=== PATIENT | female | born 1960 | race Caucasian/White ===

== ENCOUNTER → 2016-11-02 | Outpatient (CLI) | payer OTHER ==
--- NOTE | 2016-11-02 13:10 | RAD ---
Gisell Ballisaiah 11/02/2016 Time 0704 hours. Indication: Right upper quadrant pain. The pancreas, aorta and IVC are unremarkable. Liver is unremarkable. No discrete mass is detected. The gallbladder is without stones or sludge. No wall thickening or pericholecystic fluid is identified. The spleen is normal in size. The kidneys are unremarkable. There is no ascites. Impression: Unremarkable abdominal ultrasound. MTDD
== END | disposition home or self-care (01) ==
LOC: US 06:39
PROVIDERS: ATTEND Family Medicine
DX: R10.11 Right upper quadrant pain (principal)
CPT/HCPCS: 76700

== ENCOUNTER → 2017-06-06 | Day surgery (SDC) | payer OTHER ==
[~2017-06-06] MED LIST: 0.9 % SODIUM CHLORIDE 50 ML VIAL. IJ ONE; AMOX1TAB61 PO; ASPI-482 PO; DEXAMETHASONE SOD PHOS 20 MG/5 ML VIAL. ONE; DOCU-109 PO; FERR-26 PO; GELATIN SPONGE SIZE 100. ONE; GLYCOPYRROLATE 1 MG/5 ML VIAL. ONE; HYDROmorphone 2 MG/ML VIAL IV PRN; IV RINGERS,LACTATED 1000ML 1,000 ML IV SCH; KETAMINE HCL 500 MG/10 ML VIAL. ONE; KETOROLAC 30 MG/ML INJ FOR OR. INJ ONE; KETOROLAC 60 MG/2 ML INJ FOR OR. ONE; LIDOCAINE 1% PF 2 ML VIAL. ID PRN; LIDOCAINE 2% PF Vial for OR 5 ML VIAL. ONE; LIDOCAINE 2%/EPI 1:100,000 20 ML VIAL. ONE; MIDAZOLAM HCL/PF 2 MG/2 ML VIAL. ONE; MORPHINE SULFATE 2 MG/ML DISP.SYRIN. IV PRN; MULT1TAB52 PO; MUPI22OI2 TP; NEOMY/BACITR/POLYMYXIN OINT PACKET. TP ONE; ONDANSETRON PF 4 MG/2 ML VIAL. IV PRN; ONDANSETRON PF 4 MG/2 ML VIAL. ONE; OXYC-323 PO; OXYM15MI4 NS; OXYMETAZOLINE 0.05% NASAL SPRAY 30ML BOTTLE. NS ONE; PRAV40TA2 PO; PROCHLORPERAZINE 10 MG/2 ML VIAL. IV PRN; PROPOFOL 20 ML IV ONE; RANI150T2 PO; REMIFENTANIL 2 MG VIAL. IV ONE; SODI104S NS; SUCCINYLCHOLINE 200 MG/10 ML VIAL. ONE; fentaNYL PF VIAL 100 MCG/2 ML VIAL IV PRN; fentaNYL PF VIAL 100 MCG/2 ML VIAL ONE; oxyCODONE/APAP 5/325 1 TAB TABLET PO ONE
[2017-06-06] MEDS: fentaNYL PF VIAL 100 MCG/2 ML VIAL IV PRN ×3 (11:55→13:08)
--- NOTE | 2017-06-06 12:08 | DISCH ---
DISCHARGE INSTRUCTIONS Condition on Discharge Condition on Discharge: Stable Activity After Discharge Activity Instructions for Disc: Avoid exertion Lifting Instructions after Dis: Do not lift >10 pounds Driving Instructions after Dis: Do not drive today Diet after Discharge Diet after Discharge: Regular Wound Incision Care Wound/Incision Care: Ice to area for comfort Contacting the [facility] after DC Call your doctor for: Concerns you may have JENNY LOPEZ MD Jun 06, 2017 12:07
--- NOTE | 2017-06-06 12:20 | PDOC4 ---
OPERATIVE NOTE Date: Date: Jun 06, 2017 Pre-Op Diagnosis: acquired nasal deformity, deviated septum, bilateral inferior turbinate hypertrophy Post-Op Diagnosis: Same as above Procedure Performed: open septorhinoplasty to include open septoplasty with reconstruction of nasal septum using cadaveric rib, medial and lateral osteotomies, left bias cutter graft ; bilateral inferior turbinoplasty Surgeon: Dr. Shona Abraham Anesthesia Type: GETA Blood Loss: 150mL Specimans Obtained: none Findings: 1. Nasal bones deviated to right 2. Depression of left midvault 3. Severe fracturing of caudal septum with severe deviation 4. Upturned appearance to nasal tip 5. Bilateral inferior turbinate hypertrophy Complications: none Operative Note: Dictation # [id number] SHONA ABRAHAM MD Jun 06, 2017 12:20
[2017-06-06 14:08] VITALS: BP 100/60
--- NOTE | 2017-06-06 16:31 | OP ---
DATE OF SURGERY: 06/06/2017 PREOPERATIVE DIAGNOSES: Acquired nasal deformity, deviated septum and bilateral inferior turbinate hypertrophy. POSTOPERATIVE DIAGNOSES: Acquired nasal deformity, deviated septum and bilateral inferior turbinate hypertrophy. PROCEDURE PERFORMED: 1. Open septorhinoplasty to include open septoplasty with reconstruction of the nasal septum using cadaveric rib, medial and lateral osteotomies, left glass decorator graft and reconstruction of the nasal tip. 2. Bilateral inferior turbinoplasty. SURGEON: Dr. Shona Abraham. ANESTHESIA: General endotracheal anesthesia. ESTIMATED BLOOD LOSS: 150 mL. SPECIMENS: None. INDICATIONS FOR SURGERY: The patient is a 57-year-old female with a history of chronic nasal airway obstructions status post multiple traumas to her nose as a teenager. The patient has significant worsening of her nasal obstruction over the past year that has been refractory to medical management. The decision was made for patient to undergo the procedure. After the risks, benefits and alternatives to surgery were thoroughly discussed with the patient, informed consent was obtained. INTRAOPERATIVE FINDINGS: 1. The nasal bones were deviated to the right. 2. Depression of the left mid vault. 3. Severe septal deviation with caudal septum being fractured into multiple pieces and significantly deviated to the right superiorly and a large left spur along the left nasal floor inferiorly. 4. Bilateral inferior turbinate hypertrophy. 5. An upturned appearance to the nasal tip. DESCRIPTION OF THE PROCEDURE: The patient was brought back to the operating room per anesthesia and intubated in standard fashion. The patient was then turned 90 degrees in the room. I injected the nasal septum, nasal dorsum and lateral nasal wall with 2% lidocaine with 1:100,000 epinephrine in a subcutaneous fashion. Afrin-soaked pledgets were inserted into the nasal cavity bilaterally and the patient was prepped and draped in standard fashion. The Afrin-soaked pledgets were subsequently removed. A 0-degree scope was used to visualize the left and right nasal cavity. The patient was found to have severe anterior septal deflections bilaterally and bilateral inferior turbinate hypertrophy. Using the straight blade of the microdebrider, I incised into the anterior aspect of the left inferior turbinate. I then resected the mucosa along the lateral and inferior turbinate along its entire length. I also resected the posterior mulberry tissue. [place] was used to elevate the residual mucosa off the most inferior portion of the turbinate bone and the inferior portion of the turbinate bone was conservatively resected. The residual mucosa was trimmed and redraped on the residual turbinate bone and the residual turbinate bone was outfractured. Suction Bovie electrocautery was used to obtain hemostasis posteriorly. An identical procedure was done on the right side and after this was completed, the bilateral inferior turbinates were of normal size. An inverted V columellar incision was then made with a #15 blade and an 11 blade. Iris scissors was used to elevate the skin and soft tissue envelope off the lower lateral crura and mid vault of the nose. I then the lower lateral crura at the midline and identified the caudal aspect of the septum. In doing so, the caudal septum was found to be in multiple pieces and fracture sites with multiple pieces going to the right and left anteriorly. This cartilaginous septum was completely unstable and it was completely resected. The caudal aspect was completely resected. I did leave a 1 cm dorsal strut intact and elevated the mucoperichondrial flap off the cartilaginous and bony septum. There were multiple tears made bilaterally. 4-0 chromic sutures were used along the left mucoperichondrial flap to repair these tears in the mucoperichondrial flap on this side. I then used a piece of cadaveric costal cartilage. Using a 10 blade, this was shaped into a correct graft form. A graft was placed to reconstruct the caudal septum. This was sutured to the midline of the maxillary crest using 4-0 PDS suture. The graft was attached to the dorsal cartilaginous septum superiorly with a mattress suture of 4-0 PDS. From the dorsal septum, I the upper lateral cartilages. A small piece of a glass decorator graft was placed on the left side and medial osteotomies were performed in a standard fashion. I then used horizontal mattress suture of 5-0 PDS to reattach the upper lateral cartilages to the dorsal septum with using this left glass decorator graft intact. Inserted septum cartilage was then trimmed to the correct size and location and I did conservative trim of some excess cartilage superiorly to give a better tip defining point. 5-0 nylon suture was then used to perform inter-domal and intradomal sutures to redefine the tip at the midline. A medial crural flaring suture was placed of the medial crura to realign this at the midline as well. I then made a stab incision to the lateral aspect just superior to the inferior turbinate and elevated the periosteum off of the lateral nasal bone. Rttt-qey-[id number] osteotomies were performed bilaterally until the nasal bones were freely mobile. The nasal bones were then realigned at the midline. The skin and soft tissue was redraped on the nasal dorsum and I ensured correct alignment. The skin incisions were closed with simple interrupted sutures of 5-0 Prolene. The lateral marginal incisions were closed with simple interrupted sutures of 4-0 chromic. Hortencia splints were coated in mupirocin ointment and placed along the anterior septum bilaterally. This is sutured to the anterior septum using 2-0 Prolene suture. The nose was taped with Mastisol and Steri-Strips and a thermal dressing was applied. The nasal cavity was thoroughly aspirated. An orogastric tube was placed to suction out stomach and hypopharyngeal contents. The patient was turned back over to anesthesia and extubated without complication. Our sponge, needle and instrument count were correct at the end of the case. COMPLICATIONS: None. DISPOSITION: Stable and transferred to recovery room. SHONA ABRAHAM MD DR: TRACIE/skyler JOB#: [id number] / [id number] AVELINA
== END | disposition home or self-care (01) ==
LOC: SURG 05:58
PROVIDERS: ATTEND Otolaryngology
DX: M95.0 Acquired deformity of nose (principal); J34.2 Deviated nasal septum; J34.3 Hypertrophy of nasal turbinates; J44.9 Chronic obstructive pulmonary disease, unspecified; E78.00 Pure hypercholesterolemia, unspecified; K21.9 Gastro-esophageal reflux disease without esophagitis; Z90.710 Acquired absence of both cervix and uterus; Z90.721 Acquired absence of ovaries, unilateral; E03.9 Hypothyroidism, unspecified; F10.99 Alcohol use, unspecified with unspecified alcohol-induced disorder; F17.210 Nicotine dependence, cigarettes, uncomplicated
CPT/HCPCS: 20912; 30130; 30420; C1763; J0330; J0690; J1100; J1885; J2250; J2405; J2704; J3010; J3490; J7120; J2001

== ENCOUNTER → 2017-06-19 | Outpatient (CLI) | payer OTHER ==
[2017-06-06 14:08] VITALS: BP 100/60
[~2017-06-19] MED LIST changes: -0.9 % SODIUM CHLORIDE 50 ML VIAL. IJ ONE; -DEXAMETHASONE SOD PHOS 20 MG/5 ML VIAL. ONE; -GELATIN SPONGE SIZE 100. ONE; -GLYCOPYRROLATE 1 MG/5 ML VIAL. ONE; -HYDROmorphone 2 MG/ML VIAL IV PRN; -IV RINGERS,LACTATED 1000ML 1,000 ML IV SCH; -KETAMINE HCL 500 MG/10 ML VIAL. ONE; -KETOROLAC 30 MG/ML INJ FOR OR. INJ ONE; -KETOROLAC 60 MG/2 ML INJ FOR OR. ONE; -LIDOCAINE 1% PF 2 ML VIAL. ID PRN; -LIDOCAINE 2% PF Vial for OR 5 ML VIAL. ONE; -LIDOCAINE 2%/EPI 1:100,000 20 ML VIAL. ONE; -MIDAZOLAM HCL/PF 2 MG/2 ML VIAL. ONE; -MORPHINE SULFATE 2 MG/ML DISP.SYRIN. IV PRN; -NEOMY/BACITR/POLYMYXIN OINT PACKET. TP ONE; -ONDANSETRON PF 4 MG/2 ML VIAL. IV PRN; -ONDANSETRON PF 4 MG/2 ML VIAL. ONE; -OXYMETAZOLINE 0.05% NASAL SPRAY 30ML BOTTLE. NS ONE; -PROCHLORPERAZINE 10 MG/2 ML VIAL. IV PRN; -PROPOFOL 20 ML IV ONE; -REMIFENTANIL 2 MG VIAL. IV ONE; -SUCCINYLCHOLINE 200 MG/10 ML VIAL. ONE; -fentaNYL PF VIAL 100 MCG/2 ML VIAL IV PRN; -fentaNYL PF VIAL 100 MCG/2 ML VIAL ONE; -oxyCODONE/APAP 5/325 1 TAB TABLET PO ONE
--- NOTE | 2017-06-19 16:39 | RAD ---
DATE: June 19, 2017 EXAM: DIGITAL SCREEN BILAT W/CAD HISTORY: Screening study. COMPARISON: 2014 and 2015. This study was interpreted with the benefit of Computerized Aided Detection (CAD). FINDINGS: The breast parenchyma is heterogeneously dense. There are no dominant suspicious masses, suspicious microcalcifications or evidence of architectural distortion. IMPRESSION: No mammographic indicators for malignancy. BI-RADS CATEGORY: 1 NEGATIVE RECOMMENDED FOLLOW-UP: 12M 12 MONTH FOLLOW-UP PQRS compliance statement: Patient information was entered into a reminder system with a target due date June 20, 2018 for the next mammogram. Mammography is a sensitive method for finding small breast cancers, but it does not detect them all and is not a substitute for careful clinical examination. A negative mammogram does not negate a clinically suspicious finding and should not result in delay in biopsying a clinically suspicious abnormality. "Our facility is accredited by the [employer] Mammography Program." The patient's breast density may affect the ability of mammography to detect breast cancer. There are 4 categories of breast density, A, B, C and D. Breast density A means that most of the breast tissue is replaced with adipose tissue and therefore is not dense. Breast density B means that the breast tissue is mildly dense and scattered. Breast density C means that the breast tissue is heterogeneously dense. Breast density D means that the breast tissue is very dense. Breast densities especially C and D may decrease the sensitivity of mammography to detect breast cancer. Therefore, the patient may benefit from 3-D breast mammography (3D breast tomography) as a part of their screening mammogram. Insurance may or may not pay for this additional imaging. The patient's breast density based on today's mammogram is category C..
== END | disposition home or self-care (01) ==
LOC: MAMMO 14:42
PROVIDERS: ATTEND Family Medicine
DX: Z12.31 Encounter for screening mammogram for malignant neoplasm of breast (principal)
CPT/HCPCS: G0202; 77067

== ENCOUNTER → 2017-11-28 | Outpatient (CLI) | payer OTHER ==
[2017-11-28 07:46] LABS: HEMATOCRIT 39.9 % (36.0-47.0); HEMOGLOBIN 13.5 g/dL (12.0-15.5); MEAN CORPUSCULAR HEMOGLOBIN 31 pg (25-35); MEAN CORPUSCULAR HGB CONC 34 g/dL (31-37); MEAN CORPUSCULAR VOLUME 91 fL (79-100); PLATELET COUNT 257 x10^3/uL (140-400); RED BLOOD COUNT 4.41 x10^6/uL (3.50-5.40); RED CELL DISTRIBUTION WIDTH 13.7 % (11.5-14.5); WHITE BLOOD COUNT 5.1 x10^3/uL (4.0-11.0)
[2017-11-28 08:10] LABS: ANION GAP 8 (6-14); BLOOD UREA NITROGEN 14 mg/dL (7-20); CALCIUM 8.8 mg/dL (8.5-10.1); CARBON DIOXIDE 28 mmol/L (21-32); CHLORIDE 107 mmol/L (98-107); CHOLESTEROL 166 mg/dL (0-200); GFR 56.7; GLUCOSE 90 mg/dL (70-99); HDLC 70 mg/dL (40-60); LDLC 81 mg/dL (0-100); NON-HDL CHOLESTEROL 96 mg/dL (0-129); POTASSIUM 3.8 mmol/L (3.5-5.1); SODIUM 143 mmol/L (136-145); TRIGLYCERIDES 76 mg/dL (0-150); VLDLC 15 mg/dL (0-40)
[2017-11-28 08:12] LABS: CHOLESTEROL/HDL RATIO 2.4
[2017-11-28 08:18] LABS: THYROID STIM HORMONE (TSH) 4.017 uIU/mL (0.358-3.74)
[2017-11-28 08:18] LABS: FREE T4 0.87 ng/dL (0.76-1.46)
== END | disposition home or self-care (01) ==
LOC: LAB 07:26
DX: E78.5 Hyperlipidemia, unspecified (principal); N18.3 Chronic kidney disease, stage 3 (moderate); D50.9 Iron deficiency anemia, unspecified; Z86.39 Personal history of other endocrine, nutritional and metabolic disease
CPT/HCPCS: 36415; 80048; 80061; 84439; 84443; 85027

== ENCOUNTER → 2017-12-20 | Day surgery (SDC) | payer OTHER ==
[~2017-12-20] MED LIST changes: -AMOX1TAB61 PO; -ASPI-482 PO; -DOCU-109 PO; -FERR-26 PO; +LIDOCAINE 1% PF 2 ML VIAL. ID; +LIDOCAINE 2% PF Vial for OR 5 ML VIAL.; +MORPHINE SULFATE 2 MG/ML DISP.SYRIN. IV; -MULT1TAB52 PO; -MUPI22OI2 TP; +ONDANSETRON PF 4 MG/2 ML VIAL. IV; -OXYC-323 PO; -OXYM15MI4 NS; -PRAV40TA2 PO; +PROCHLORPERAZINE 10 MG/2 ML VIAL. IV; +PROPOFOL 40 ML IV; -RANI150T2 PO; -SODI104S NS; +fentaNYL PF VIAL 100 MCG/2 ML VIAL IV
[2017-12-20] MEDS: IV RINGERS,LACTATED 1000ML 1,000 ML IV (11:36)
== END | disposition home or self-care (01) ==
LOC: ENDOS 11:02
DX: Z12.11 Encounter for screening for malignant neoplasm of colon (principal); K57.30 Diverticulosis of large intestine without perforation or abscess without bleeding; K64.0 First degree hemorrhoids; E78.00 Pure hypercholesterolemia, unspecified; K21.9 Gastro-esophageal reflux disease without esophagitis; Z90.710 Acquired absence of both cervix and uterus; Z87.891 Personal history of nicotine dependence; Z72.89 Other problems related to lifestyle; Z98.890 Other specified postprocedural states; Z79.82 Long term (current) use of aspirin; Z79.899 Other long term (current) drug therapy; Z90.79 Acquired absence of other genital organ(s); N18.3 Chronic kidney disease, stage 3 (moderate); E03.9 Hypothyroidism, unspecified
CPT/HCPCS: 45378; J2001; J2704

== ENCOUNTER → 2018-04-16 | Outpatient (CLI) | payer OTHER ==
[2017-12-20 12:22] VITALS: BP 125/76
[~2018-04-16] MED LIST changes: +AMOX1TAB61 PO; +ASPI-482 PO; +DOCU-109 PO; +FERR325T14 PO; -LIDOCAINE 1% PF 2 ML VIAL. ID; -LIDOCAINE 2% PF Vial for OR 5 ML VIAL.; -MORPHINE SULFATE 2 MG/ML DISP.SYRIN. IV; +MULT1TAB52 PO; +MUPI22OI2 TP; -ONDANSETRON PF 4 MG/2 ML VIAL. IV; +OXYC-323 PO; +OXYM15MI4 NS; +PRAV40TA2 PO; -PROCHLORPERAZINE 10 MG/2 ML VIAL. IV; -PROPOFOL 40 ML IV; +RANI150T2 PO; +SODI104S NS; -fentaNYL PF VIAL 100 MCG/2 ML VIAL IV
[2018-04-16 07:52] LABS: CALCIUM 8.9 mg/dL (8.5-10.1); CREATININE 1.1 mg/dL (0.6-1.0); GFR 50.7
[2018-04-16 08:08] LABS: FREE T4 0.9 ng/dL (0.76-1.46); THYROID STIM HORMONE (TSH) 3.5 uIU/mL (0.358-3.74)
== END | disposition home or self-care (01) ==
LOC: LAB 07:03
PROVIDERS: ATTEND Family Medicine
DX: N18.3 Chronic kidney disease, stage 3 (moderate) (principal); Z86.39 Personal history of other endocrine, nutritional and metabolic disease
CPT/HCPCS: 36415; 80048; 84439; 84443

== ENCOUNTER → 2018-06-13 | Outpatient (CLI) | payer OTHER ==
[2017-12-20 12:22] VITALS: BP 125/76
[~2018-06-13] MED LIST changes: +BUPIVACAINE MPF 0.25% 10 ML VIAL. ONE; +IOHEXOL 180 MG/ML 10 ML VIAL. ONE; -OXYC-323 PO; +OXYC1TAB15 PO; +methylPREDNISolone ACETATE 80 MG/ML VIAL. ONE
--- NOTE | 2018-06-13 15:22 | PAIN ---
DATE OF SERVICE: 06/13/2018 INITIAL CONSULTATION FOR PAIN CLINIC CHIEF COMPLAINT: Right shoulder pain. HISTORY OF PRESENT ILLNESS: The patient is a 58-year-old female who presents with a history of pain in right shoulder for many years since about 2011, but worse over the past month or so without any specific injury or action that she is aware of, just increased work at her place of occupation and increased lifting. She was doing some light weights about 5 pounds each in each arm. Reports that the pain began to become more noticeable about a month ago, and then became much more noticeable over the past few weeks. The patient reports was agitated by the way, she has still been doing exercises, strengthening and stretching exercises and some light weightlifting as well, but just putting up with the pain. The patient reports it is becoming more noticeable, worse at night and awakens her from sleep about twice a night, but not every night, does not affect any other aspects of bowel control or bladder control or ability to walk. The patient has had trigger point injections in the past, which worked very well, physical therapy also and exercise which she currently does. She did have a biceps tendon injection in 2011 with her orthopedist, which provided about 6 years relief she reports. The patient rates her disability rating from 0-10, 10 being the worst, as a 4 with family and home responsibilities and life support activities, 8 with recreation, 2 with social activity and occupation activity and self-care and 0 with sexual behavior. The patient reports no new films or other modalities. No loss of function of the right upper extremity, but some pain with exercise. The patient reports it is tingling with numbness and radiation, aching in the shoulder itself anteriorly, intermittent in intensity. PAST MEDICAL HISTORY: Significant for cigarette smoking 1-1/2 packs a day, quit 10 years ago, arthritis, acid reflux. PREVIOUS SURGERIES: Include hysterectomy in 1979 and nasal surgery in 2016. CURRENT MEDICATIONS: Include docusate, ranitidine, daily baby aspirin, multivitamins, and pravastatin. ALLERGIES: The patient has no known drug allergies. FAMILY HISTORY: Significant for heart disease in the mother and grandfather. SOCIAL HISTORY: The patient drinks alcohol only very occasionally, 1 or 2 drinks every few months. Does not smoke, quit many years ago. Does not use any illegal, illicit or recreational drugs. She is single. Lives locally in [place], [place] and works at the [employer]. REVIEW OF SYSTEMS: The patient's review of systems is positive for those items mentioned in history of present illness. All systems reviewed and otherwise negative. It is complete, full and well documented on the patient's chart. PHYSICAL EXAMINATION: VITAL SIGNS: The patient's blood pressure is 122/78, pulse 76, respirations 18, temperature is 98.2 degrees Fahrenheit, height is 5 feet 5 inches, weight is 151 pounds. GENERAL: The patient is awake, alert, oriented, appropriate, very pleasant demeanor. HEENT: Shows normocephalic, atraumatic. Extraocular movements are intact and symmetrical. Oral cavity shows mucous membranes moist and pink. Dentition is intact. NECK: Shows anterior throat is supple without palpable lymphadenopathy noted. Swallow reflex is symmetrical. CHEST: Shows normal with inspection. Breath sounds are clear to auscultation bilaterally. HEART: Shows S1, S2 clear. No murmurs auscultated. ABDOMEN: Soft, nontender, nondistended. No palpable organomegaly is noted. No rebound or guarding demonstrated. MUSCULOSKELETAL: Back shows spine grossly in the midline, normal appearing cervical lordotic curvature, thoracic kyphotic curvature and lumbar lordotic curvature. Lumbar paraspinous muscle shows symmetrical on inspection, on palpation shows some very mild tenderness diffusely, this is true in the cervical distribution as well, but without radiation. The patient has full rotational motion of cervical spine and lumbar spine, both laterally as well as extension and flexion without difficulty. The patient's upper extremities show deep tendon reflexes 2+ in the biceps and triceps tendons. Motor exam is strong with replanter strength rated at 5/5 as is bicep and tricep flexion, which is not exacerbated pain in the right shoulder. With palpation over the right deltoid in the anterior biceps tendon shows very firm, very tender, significant pain with palpation over this region. The anterior biceps groove is exquisitely tender. No tenderness over the acromioclavicular joints. The patient shows good rotational motion of the shoulder as well as abduction at 90 degrees without loss of strength on resistance. Shoulder shrug is strong and intact without loss of strength on resistance. SKIN: Shows warm and dry, good turgor. No edema. No sores, rashes or bruising. IMPRESSION: 1. This is a 58-year-old female with a long history of right shoulder pain, worse over the past month or so, without specific injury. 2. Arthritis. 3. Reflux. PLAN: Options were discussed with the patient including conservative medical management, physical therapies, interventional techniques and she would like to pursue interventional techniques. We discussed a right-sided biceps tendon injection using description as well as anatomical models to describe the procedure. Risks were discussed including, but not limited to, bleeding, infection, possibility of intravascular injection sequelae, spread of local anesthetic and numbness, side effects of steroid medication, exposure to fluoroscopy and poor results regarding pain control. The patient understands and wished to proceed. The patient will return to the clinic in approximately 2 weeks for a followup, was counseled on return appointment, activity level and side effects to be aware of. DIAGNOSIS: Right shoulder pain with biceps tendinitis. PROCEDURE: Right biceps tendon injection under sterile prep and drape using a local anesthetic. MEDICATION INJECTED: A total of 80 mg of Depo-Medrol plus 3 mL of 0.25% bupivacaine after negative aspiration and 1 mL of Isovue for contrast. CONDITION AT DISCHARGE: Stable. The patient tolerated procedure well, had no complications. GAGAN WONG MD DR: YUNIOR/skyler JOB#: [id number] / [id number]
== END | disposition home or self-care (01) ==
LOC: PNCL 07:44
PROVIDERS: ATTEND Anesthesiology
DX: M75.21 Bicipital tendinitis, right shoulder (principal); K21.9 Gastro-esophageal reflux disease without esophagitis; M19.90 Unspecified osteoarthritis, unspecified site; Z87.891 Personal history of nicotine dependence; Z90.710 Acquired absence of both cervix and uterus; Z98.890 Other specified postprocedural states; Z79.82 Long term (current) use of aspirin; Z79.899 Other long term (current) drug therapy; Z82.49 Family history of ischemic heart disease and other diseases of the circulatory system; Z72.89 Other problems related to lifestyle
CPT/HCPCS: 20551; J1040; J3490; Q9965

== ENCOUNTER → 2018-06-22 | Outpatient (CLI) | payer OTHER ==
[2017-12-20 12:22] VITALS: BP 125/76
[~2018-06-22] MED LIST changes: -BUPIVACAINE MPF 0.25% 10 ML VIAL. ONE; -IOHEXOL 180 MG/ML 10 ML VIAL. ONE; -methylPREDNISolone ACETATE 80 MG/ML VIAL. ONE
--- NOTE | 2018-06-24 12:13 | RAD ---
DATE: 06/22/2018 12:00 PM EXAM: MAMMO ISSAC SCREENING BILATERAL HISTORY: routine screening evaluation. COMPARISON: Prior mammographic imaging dating back to 05/17/2011 Bilateral CC and MLO views of the breasts were performed. Bilateral breast tomosynthesis was performed in CC and MLO projections. This study was interpreted with the benefit of Computerized Aided Detection (CAD ). Breast Density: The breast parenchyma is heterogeneously dense, which could reduce sensitivity of mammography. Breast parenchyma level C. FINDINGS: No suspicious masses, microcalcifications or architectural distortion is present to suggest malignancy in either breast. The visualized axillae are unremarkable. IMPRESSION: No mammographic evidence of malignancy. BI-RADS CATEGORY: 2 BENIGN FINDING(S) RECOMMENDED FOLLOW-UP: 12M 12 MONTH FOLLOW-UP Annual screening mammography is recommended, unless clinically indicated sooner based on symptoms or change in physical exam. PQRS compliance statement: Patient information was entered into a reminder system with a target due date 06/22/2019 for the next mammogram. Mammography is a sensitive method for finding small breast cancers, but it does not detect them all and is not a substitute for careful clinical examination. A negative mammogram does not negate a clinically suspicious finding and should not result in delay in biopsying a clinically suspicious abnormality. "Our facility is accredited by the [employer] Mammography Program." BRUNOD
== END | disposition home or self-care (01) ==
LOC: MAMMO 09:44
PROVIDERS: ATTEND Family Medicine
DX: Z12.31 Encounter for screening mammogram for malignant neoplasm of breast (principal)
CPT/HCPCS: 77063; 77067

== ENCOUNTER → 2018-08-15 | Outpatient (CLI) | payer OTHER ==
[2017-12-20 12:22] VITALS: BP 125/76
[2018-08-15 09:40] LABS: HEMATOCRIT 38.8 % (36.0-47.0); HEMOGLOBIN 12.7 g/dL (12.0-15.5); RED BLOOD COUNT 4.28 x10^6/uL (3.50-5.40); RED CELL DISTRIBUTION WIDTH 12.7 % (11.5-14.5); WHITE BLOOD COUNT 6.3 x10^3/uL (4.0-11.0)
[2018-08-15 10:06] LABS: CHOLESTEROL/HDL RATIO 2.3
== END | disposition home or self-care (01) ==
LOC: LAB 09:19
PROVIDERS: ATTEND Family Medicine
DX: E78.5 Hyperlipidemia, unspecified (principal); D50.9 Iron deficiency anemia, unspecified
CPT/HCPCS: 36415; 80061; 85027

== ENCOUNTER 2019-05-08 08:05 | Emergency (ER) | payer OTHER ==
[~2019-05-08] VITALS: Ht 165.1 cm; Wt 65.8 kg
--- NOTE | 2019-05-08 08:28 | PHYS DOC ---
Adult General Chief Complaint Chief Complaint: SHORTNESS OF BREATH HPI HPI Patient is a 59 year old female who presents with complaining of shortness of breath. Patient complaining of cold symptoms including nonproductive cough, sore throat, nasal congestion, headache and myalgia for the last 4 days with subjective fever. Patient states she was not able to sleep last night with chills and complaining of shortness of breath since this morning as a constant problem. Patient complaining of chest soreness during episodes of cough and denies vomiting, diarrhea, sick contacts at home. Review of Systems Review of Systems Constitutional: Reports subjective fever and chills Eyes: Denies change in visual acuity, redness, or eye pain [] HENT: Reports nasal congestion and sore throat Respiratory: Reports cough and shortness of breath Cardiovascular: No additional information not addressed in HPI [] GI: Denies abdominal pain, nausea, vomiting, bloody stools or diarrhea [] : Denies dysuria or hematuria [] Musculoskeletal: Denies back pain or joint pain [] Integument: Denies rash or skin lesions [] Neurologic: Denies headache, focal weakness or sensory changes [] Endocrine: Denies polyuria or polydipsia [] All other systems were reviewed and found to be within normal limits, except as documented in this note. Current Medications Current Medications Current Medications Medications (Trade) Dose Ordered Sig/Rosalba Start Time Stop Time Status Last Admin Dose Admin Albuterol/ Ipratropium (Duoneb) 3 ml 1X ONCE 05/08/19 08:30 05/08/19 08:31 DC 05/08/19 08:39 3 ML Allergies Allergies Allergies Coded Allergies Type Severity Reaction Last Updated Verified codeine Adverse Reaction Mild 05/08/19 Yes Physical Exam Physical Exam Constitutional: Well developed, well nourished, mild distress, non-toxic appearance. [] HENT: Normocephalic, atraumatic, bilateral external ears normal, oropharynx moist, no oral exudates, nose normal. [] Eyes: PERRLA, EOMI, conjunctiva normal, no discharge. [] Neck: Normal range of motion, no tenderness, supple, no stridor. [] Cardiovascular:Heart rate regular rhythm, no murmur [] Lungs & Thorax: Bilateral breath sounds clear to auscultation [] Abdomen: Bowel sounds normal, soft, no tenderness, no masses, no pulsatile masses. [] Skin: Warm, dry, no erythema, no rash. [] Back: No tenderness, no CVA tenderness. [] Extremities: No tenderness, no cyanosis, no clubbing, ROM intact, no edema. [] Neurologic: Alert and oriented X 3, normal motor function, normal sensory function, no focal deficits noted. [] Psychologic: Affect normal, judgement normal, mood normal. [] Current Patient Data Vital Signs Vital Signs Date Time Temp Pulse Resp B/P (MAP) Pulse Ox O2 Delivery O2 Flow Rate FiO2 05/08/19 08:40 98 Room Air 05/08/19 08:10 98.6 76 18 126/87 (100) 98.6 Lab Values Laboratory Tests Test 05/08/19 08:40 05/08/19 08:50 Influenza Type A Antigen Negative (NEGATIVE) Influenza Type B Antigen Negative (NEGATIVE) White Blood Count 5.4 x10^3/uL (4.0-11.0) Red Blood Count 4.45 x10^6/uL (3.50-5.40) Hemoglobin 12.6 g/dL (12.0-15.5) Hematocrit 38.3 % (36.0-47.0) Mean Corpuscular Volume 86 fL (79-100) Mean Corpuscular Hemoglobin 28 pg (25-35) Mean Corpuscular Hemoglobin Concent 33 g/dL (31-37) Red Cell Distribution Width 15.0 % (11.5-14.5) H Platelet Count 201 x10^3/uL (140-400) Neutrophils (%) (Auto) 60 % (31-73) Lymphocytes (%) (Auto) 30 % (24-48) Monocytes (%) (Auto) 9 % (0-9) Eosinophils (%) (Auto) 0 % (0-3) Basophils (%) (Auto) 1 % (0-3) Neutrophils # (Auto) 3.3 x10^3/uL (1.8-7.7) Lymphocytes # (Auto) 1.6 x10^3/uL (1.0-4.8) Monocytes # (Auto) 0.5 x10^3/uL (0.0-1.1) Eosinophils # (Auto) 0.0 x10^3/uL (0.0-0.7) Basophils # (Auto) 0.0 x10^3/uL (0.0-0.2) Sodium Level 143 mmol/L (136-145) Potassium Level 4.0 mmol/L (3.5-5.1) Chloride Level 107 mmol/L (98-107) Carbon Dioxide Level 24 mmol/L (21-32) Anion Gap 12 (6-14) Blood Urea Nitrogen 12 mg/dL (7-20) Creatinine 1.1 mg/dL (0.6-1.0) H Estimated GFR (Cockcroft-Gault) 50.5 BUN/Creatinine Ratio 11 (6-20) Glucose Level 97 mg/dL (70-99) Calcium Level 8.7 mg/dL (8.5-10.1) Total Bilirubin 0.2 mg/dL (0.2-1.0) Aspartate Amino Transferase (AST) 54 U/L (15-37) H Alanine Aminotransferase (ALT) 52 U/L (14-59) Alkaline Phosphatase 83 U/L (46-116) Troponin I Quantitative < 0.017 ng/mL (0.000-0.055) BG-Ufx-K-Type Natriuretic Peptide 86 pg/mL (0-124) Total Protein 6.6 g/dL (6.4-8.2) Albumin 3.7 g/dL (3.4-5.0) Albumin/Globulin Ratio 1.3 (1.0-1.7) Laboratory Tests 05/08/19 08:50 Laboratory Tests 05/08/19 08:50 EKG EKG EKG interpreted by me. EKG at 0816 showed normal sinus rhythm at rate of 87, normal AR and QT intervals, no acute ST and T-wave elevation. Radiology/Procedures Radiology/Procedures [][facility] [address] [place] [address] IMAGING REPORT Signed PATIENT: CHIO GALVEZ ACCOUNT: [id number] : 1960 LOCATION: ER AGE: 59 SEX: F EXAM STATUS: REG ER ORD. PHYSICIAN: JOURDAN FLOWERS MD REASON: shortness of breath PROCEDURE: CHEST PA & LATERAL CHEST PA LATERAL INDICATION: Dyspnea. COMPARISON STUDY: None. FINDINGS: Lungs: Normal lung volume. No pulmonary mass or consolidation. The tracheobronchial tree and hilar structures are normal. Pleura: No pleural effusion or pneumothorax. Heart and Mediastinum: The cardiomediastinal silhouette is normal. The great vessels of the thorax are normal. Bones and Soft Tissues: Right convex thoracic curvature. Left convex lumbar curvature. IMPRESSION: No acute cardiopulmonary process. Electronically signed by: Kenia Castillo MD (05/08/2019 9:05 AM) [facility] DICTATED and SIGNED BY: KENIA CASTILLO MD DATE: 05/08/19904 Course & Med Decision Making Course & Med Decision Making Pertinent Labs and Imaging studies reviewed. (See chart for details) Evaluation of patient in ER showed 59-year-old female patient with complaining of URI symptoms for 5 days and shortness of breath since this morning. Patient had unremarkable physical exam and labs including for a test and chest x-ray. Plan discharge patient home with diagnosis of upper respiratory infection. I've spoken with the patient and/or caregivers. I've explained the patient's condition, diagnosis and treatment plan based on information available to me at this time. I've answered the patient's and/or caregivers questions and addressed any concerns. The patient and/or caregivers have a good understanding the patient's diagnosis, condition and treatment plan as can be expected at this point. Vital signs have been stabilized. The patient's condition is stable for discharge from the emergency department. The patient will pursue further outpatient evaluation with her primary care provider or other designated consulting physician as outlined in the discharge instructions. Patient and/or caregivers are agreeable to this plan of care and follow-up instructions have been explained in detail. The patient and/or caregivers have received these instructions in written format and expressed understanding of these discharge instructions. The patient and her caregivers are aware that if any significant change in condition or worsening of symptoms should prompt him to immediately return to this of the closest emergency department. If an emergent department is not readily available I would encourage him to call 911. Adrianne Disclaimer Dragon Disclaimer This electronic medical record was generated, in whole or in part, using a voice recognition dictation system. Departure Departure Impression: Primary Impression: Upper respiratory infection Additional Impression: Dyspnea Disposition: HOME, SELF-CARE (at 0 [phone]) Condition: IMPROVED Referrals: UNKNOWN PCP NAME (PCP) Patient Instructions: Shortness of Breath, Upper Respiratory Infection, Adult Additional Instructions: Drink plenty of liquids Follow-up with your primary care physician in 3-5 days Return to ER if not getting better Scripts Azithromycin (ZITHROMAX) 250 Mg Tablet 1 PKG PO UD for infection, #1 PKG Take 2 tablets first day and then take one tablet every 24 hours for the next 4 days Prov: JOURDAN FLOWERS MD 05/08/19 Benzonatate (TESSALON PERLE) 100 Mg Capsule 1 CAP PO TID for cough, #21 CAP Prov: JOURDAN FLOWERS MD 05/08/19 Albuterol Sulfate (PROAIR HFA INHALER) 8.5 Gm Hfa.aer.ad 2 PUFF IH PRN Q4-6HRS PRN for wheezing for 21 Days, #1 INHALER 0 Refills Prov: JOURDAN FLOWERS MD 05/08/19 Problem Qualifiers Primary Impression: Upper respiratory infection URI type: unspecified URI Qualified Codes: J06.9 - Acute upper respiratory infection, unspecified Additional Impression: Dyspnea Dyspnea type: unspecified Qualified Codes: R06.00 - Dyspnea, unspecified JOURDAN FLOWERS MD May 08, 2019 08:28
[2019-05-08] MEDS ORDERED: IPRATRPIUM/ALBUTEROL 0.5/2.5MG 3 ML NEBU. NEB ONE (08:30)
--- NOTE | 2019-05-08 08:33 | EKG ---
[facility] [address] [place] [address] Test Date: 2019-05-08 Test Time: 08:16:05 Pat Name: CHIO GALVEZ Department: Room: Gender: F [employer]: : 1960 Requested By: JOURDAN FLOWERS Order Number: [id number] Reading MD: Measurements Intervals [place] Rate: 87 P: 72 MT: 132 QRS: 44 QRSD: 86 T: 46 QT: 364 QTc: 443 Interpretive Statements SINUS RHYTHM NORMAL ECG No previous ECG available for comparison
[2019-05-08 08:59] LABS: BASO % 1 % (0-3); EOS % 0 % (0-3); HEMATOCRIT 38.3 % (36.0-47.0); HEMOGLOBIN 12.6 g/dL (12.0-15.5); LYMPH # 1.6 x10^3/uL (1.0-4.8); LYMPH % 30 % (24-48); MEAN CORPUSCULAR HEMOGLOBIN 28 pg (25-35); MEAN CORPUSCULAR HGB CONC 33 g/dL (31-37); MEAN CORPUSCULAR VOLUME 86 fL (79-100); MONO # 0.5 x10^3/uL (0.0-1.1); MONO % 9 % (0-9); NEUT # 3.3 x10^3/uL (1.8-7.7); NEUT % 60 % (31-73); PLATELET COUNT 201 x10^3/uL (140-400); RED BLOOD COUNT 4.45 x10^6/uL (3.50-5.40); WHITE BLOOD COUNT 5.4 x10^3/uL (4.0-11.0)
[2019-05-08 09:06] LABS: CALCIUM 8.7 mg/dL (8.5-10.1); CREATININE 1.1 mg/dL (0.6-1.0); GFR 50.5
[2019-05-08 09:07] LABS: INFLUENZA A PATIENT NEGATIVE (NEGATIVE); INFLUENZA B PATIENT NEGATIVE (NEGATIVE)
--- NOTE | 2019-05-08 09:08 | RAD ---
CHEST PA LATERAL INDICATION: Dyspnea. COMPARISON STUDY: None. FINDINGS: Lungs: Normal lung volume. No pulmonary mass or consolidation. The tracheobronchial tree and hilar structures are normal. Pleura: No pleural effusion or pneumothorax. Heart and Mediastinum: The cardiomediastinal silhouette is normal. The great vessels of the thorax are normal. Bones and Soft Tissues: Right convex thoracic curvature. Left convex lumbar curvature. IMPRESSION: No acute cardiopulmonary process. Electronically signed by: Enrrique Ware MD (05/08/2019 9:05 AM) [facility]
[2019-05-08 09:12] LABS: ALBUMIN 3.7 g/dL (3.4-5.0); ALBUMIN/GLOBULIN RATIO 1.3 (1.0-1.7); TOTAL BILIRUBIN 0.2 mg/dL (0.2-1.0); TOTAL PROTEIN 6.6 g/dL (6.4-8.2)
[2019-05-08 09:47] VITALS: BP 121/82
[2019-05-08] MEDS ORDERED: BENZ100C PO (09:49)
[2019-05-08] MEDS ORDERED: AZIT250T PO (09:49)
[2019-05-08] MEDS ORDERED: ALBU2.5V8 IH (09:49)
== END 2019-05-08 09:59 | disposition home or self-care (01) ==
LOC: ER 08:05
DX: J06.9 Acute upper respiratory infection, unspecified (principal); R06.02 Shortness of breath; Z88.5 Allergy status to narcotic agent
CPT/HCPCS: 36415; 71046; 80053; 83880; 84484; 85025; 87804; 93005; 94640; 99285; J7620

== ENCOUNTER → 2019-06-03 | Outpatient (CLI) | payer OTHER ==
[2019-05-08 09:47] VITALS: BP 121/82
[~2019-06-03] MED LIST changes: +ALBU2.5V8 IH; +AZIT250T PO; +BENZ100C PO
[2019-06-03 07:56] LABS: BASO % 1 % (0-3); EOS # 0.3 x10^3/uL (0.0-0.7); EOS % 6 % (0-3); HEMATOCRIT 37.7 % (36.0-47.0); HEMOGLOBIN 12.6 g/dL (12.0-15.5); LYMPH # 1.7 x10^3/uL (1.0-4.8); LYMPH % 35 % (24-48); MEAN CORPUSCULAR HEMOGLOBIN 29 pg (25-35); MEAN CORPUSCULAR HGB CONC 33 g/dL (31-37); MEAN CORPUSCULAR VOLUME 88 fL (79-100); MONO # 0.4 x10^3/uL (0.0-1.1); MONO % 7 % (0-9); NEUT # 2.6 x10^3/uL (1.8-7.7); NEUT % 52 % (31-73); PLATELET COUNT 259 x10^3/uL (140-400); WHITE BLOOD COUNT 5.1 x10^3/uL (4.0-11.0)
[2019-06-03 08:19] LABS: ALBUMIN 3.7 g/dL (3.4-5.0); ALBUMIN/GLOBULIN RATIO 1.2 (1.0-1.7); CALCIUM 8.8 mg/dL (8.5-10.1); GFR 56.4; POTASSIUM 4.2 mmol/L (3.5-5.1); TOTAL BILIRUBIN 0.4 mg/dL (0.2-1.0); TOTAL PROTEIN 6.9 g/dL (6.4-8.2)
[2019-06-03 08:20] LABS: CHOLESTEROL/HDL RATIO 2.5
== END | disposition home or self-care (01) ==
LOC: LAB 07:15
PROVIDERS: ATTEND Family Medicine
DX: N18.3 Chronic kidney disease, stage 3 (moderate) (principal); E78.5 Hyperlipidemia, unspecified
CPT/HCPCS: 36415; 80053; 80061; 85025

== ENCOUNTER → 2019-06-26 | Outpatient (CLI) | payer OTHER ==
--- NOTE | 2019-06-26 14:24 | RAD ---
DATE: 06/26/2019 EXAM: MAMMO ISSAC SCREENING BILATERAL HISTORY: Routine screening COMPARISON: 05/17/2011, 04/17/2014, 04/13/2015, 05/31/2016, 06/19/2017, 06/22/2018 mammographic exams This study was interpreted with the benefit of Computerized Aided Detection (CAD). Breast Density: SCATTERED The breast parenchyma shows scattered fibroglandular densities. Breast parenchyma level B. FINDINGS: No suspicious calcification, mass, or distortion. IMPRESSION: Stable BI-RADS CATEGORY: 1 NEGATIVE RECOMMENDED FOLLOW-UP: 12M 12 MONTH FOLLOW-UP PQRS compliance statement: Patient information was entered into a reminder system with a target due date for the next mammogram. Mammography is a sensitive method for finding small breast cancers, but it does not detect them all and is not a substitute for careful clinical examination. A negative mammogram does not negate a clinically suspicious finding and should not result in delay in biopsying a clinically suspicious abnormality. "Our facility is accredited by the [employer] Mammography Program."
== END | disposition home or self-care (01) ==
LOC: MAMMO 06:52
PROVIDERS: ATTEND Family Medicine
DX: Z12.31 Encounter for screening mammogram for malignant neoplasm of breast (principal)
CPT/HCPCS: 77063; 77067

== ENCOUNTER → 2020-01-29 | Outpatient (CLI) | payer OTHER ==
[~2020-01-29] MED LIST changes: +MULT-445 PO; -MULT1TAB52 PO
[2020-01-29 08:10] LABS: HEMATOCRIT 38.3 % (36.0-47.0); HEMOGLOBIN 12.7 g/dL (12.0-15.5); RED BLOOD COUNT 4.42 x10^6/uL (3.50-5.40); RED CELL DISTRIBUTION WIDTH 15.9 % (11.5-14.5); WHITE BLOOD COUNT 5.8 x10^3/uL (4.0-11.0)
[2020-01-29 08:24] LABS: ALBUMIN 3.7 g/dL (3.4-5.0); ALBUMIN/GLOBULIN RATIO 1.2 (1.0-1.7); CALCIUM 8.9 mg/dL (8.5-10.1); CHOLESTEROL/HDL RATIO 2.6; CREATININE 1.1 mg/dL (0.6-1.0); GFR 50.5; POTASSIUM 4.1 mmol/L (3.5-5.1); TOTAL BILIRUBIN 0.3 mg/dL (0.2-1.0); TOTAL PROTEIN 6.9 g/dL (6.4-8.2)
[2020-01-29 08:37] LABS: FREE T4 0.92 ng/dL (0.76-1.46); THYROID STIM HORMONE (TSH) 2.995 uIU/mL (0.358-3.74)
== END | disposition home or self-care (01) ==
LOC: LAB 07:01
PROVIDERS: ATTEND Family Medicine
DX: E78.5 Hyperlipidemia, unspecified (principal); D50.9 Iron deficiency anemia, unspecified; M85.9 Disorder of bone density and structure, unspecified; Z86.39 Personal history of other endocrine, nutritional and metabolic disease
CPT/HCPCS: 36415; 80053; 80061; 82306; 84439; 84443; 85027

== ENCOUNTER → 2020-07-07 | Outpatient (CLI) | payer OTHER ==
[~2020-07-07] MED LIST changes: +BUPIVACAINE MPF 0.25% 10 ML VIAL. ONE; +IOHEXOL 180 MG/ML 10 ML VIAL. ONE; +methylPREDNISolone ACETATE 80 MG/ML VIAL. ONE
--- NOTE | 2020-07-07 14:54 | PDOC ---
Progress Note - Pain Clinic Date of Service: DOS: DATE: 07/07/20 TIME: 14:46 Diagnosis: Dx: Right shoulder pain Right bicep tendinitis History or Present Illness: HPI: 60-year-old female returns for follow-up last seen May 2018 patient had right biceps tendon injection with very good results or 100% improvement for about a year and a half pain is returned over the past few months in the right anterior shoulder and radiating pain into the biceps muscle itself on the right side with repetitive motions and weight lifting and biceps flexion on the right side. Patient reports is a 5 on a scale of 10 is worse over the past week 5 on average 3 at its least is a 5 today patient was aching and radiating into the anterior biceps but not any further than the elbow patient reports again worse with repetitive motions reaching overhead weightbearing with the right arm but does not have loss of motor function with the right arm. Patient reports no other complaints at this time Physical Exam: VS: Blood pressure is 119/72 pulse 77 respirations 18 temperature 97.9 F height 5 feet 5 inches weight 156 pounds PE: PHYSICAL EXAMINATION: GENERAL: The patient is awake, alert, oriented, appropriate, very pleasant demeanor HEENT: Shows normocephalic, atraumatic. Extraocular movements are intact and symmetrical. Patient wearing eyeglasses. Oral cavity: Mucous membranes moist and pink. Dentition is intact. NECK: Shows anterior throat supple without palpable lymphadenopathy noted. Swallow reflex symmetrical. CHEST: Shows normal on inspection. Breath sounds are clear bilaterally, no rales rhonchi or wheezes. HEART: Shows S1, S2 clear. No murmurs auscultated. ABDOMEN: Soft, nontender, nondistended, obese. No palpable organomegaly is note d. BACK: Shows spine grossly in the midline. Normal-appearing cervical lordotic curvature. There is slightly increased thoracic kyphosis, some minor flattening of the lumbar lordotic curvature. EXTREMITIES: Upper extremities show deep tendon reflexes 2+ in the biceps and triceps tendons. 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 With palpation over the right biceps tendon insertion so significant tenderness over the anterior aspect of the deltoid region in the head of the humerus with some radiating pain into the anterior aspect of the mid bicep muscle itself. Patient shows full rotation motion of the right shoulder with abduction and adduction as well as anterior and posterior rotation motion without significant difficulty. Patient shows no loss of strength with resistance with shoulder shrug and abduction of the shoulders at 90 degrees. Peripheral pulses are 2+ radial. No peripheral edema is noted bilaterally. Upper extremities are warm and dry to touch, equal in color and appearance. SKIN: Shows warm and dry, good turgor. No edema. No sores, rashes or bruising throughout. Procedure: Procedure: Options were discussed with the patient. Patient will chart reviews her current medication regimen updated current review of systems updated today as well. We will proceed with a right biceps tendon injection with fluoroscopic guidance. Risks were discussed including but not limited to bleeding infection possibility of intravascular injection sequelae spread of local anesthetic and numbness side effects of steroid medication exposure to fluoroscopy and portals regarding pain control. Patient understands wished to proceed. Patient will return to clinic in approximately 4 weeks or as necessary. Medication Injected: Med Injected: Under sterile prep and drape patient in the supine position using C-arm fluoroscopic guidance patient's right shoulder was sterilely prepped and draped using C-arm fluoroscopy was identified at the humerus and insertion of the biceps tendon in the bicipital groove of the humerus. Using a 25-gauge 1-1/2 inch needle under direct fluoroscopic visualization the biceps tendon sheath was then injected with 1 cc of contrast showing good spread within the tendon sheath itself without washout or uptake. At this time bupivacaine 0.25% 3 cc and 80 mg Depo-Medrol was then injected. Needle was withdrawn and sterile bandage was applied. Patient tolerated procedure well and had no complications. Condition at Discharge: Condition at Discharge: Condition at discharge is stable. Patient tolerated the procedure well, and had no complications. GAGAN WONG MD Jul 07, 2020 14:54
== END | disposition home or self-care (01) ==
LOC: PNCL 13:57
PROVIDERS: ATTEND Anesthesiology
DX: M25.511 Pain in right shoulder (principal); M75.21 Bicipital tendinitis, right shoulder; E78.00 Pure hypercholesterolemia, unspecified; K21.9 Gastro-esophageal reflux disease without esophagitis; I12.9 Hypertensive chronic kidney disease with stage 1 through stage 4 chronic kidney disease, or unspecified chronic kidney disease; N18.30 Chronic kidney disease, stage 3 unspecified; Z90.710 Acquired absence of both cervix and uterus; Z98.890 Other specified postprocedural states; Z79.899 Other long term (current) drug therapy; Z87.891 Personal history of nicotine dependence; Z72.89 Other problems related to lifestyle; Z88.5 Allergy status to narcotic agent
CPT/HCPCS: 20610; 77002; J1040; J3490; Q9965; 20605

== ENCOUNTER → 2020-07-28 | Outpatient (CLI) | payer OTHER ==
[~2020-07-28] MED LIST changes: -BUPIVACAINE MPF 0.25% 10 ML VIAL. ONE; -IOHEXOL 180 MG/ML 10 ML VIAL. ONE; -methylPREDNISolone ACETATE 80 MG/ML VIAL. ONE
--- NOTE | 2020-07-29 10:19 | RAD ---
DATE: 07/28/2020 3:06 PM EXAM: MAMMO ISSAC SCREENING BILATERAL HISTORY: Screening COMPARISON: 06/26/2019 Bilateral CC and MLO views of the breasts were performed. Bilateral breast tomosynthesis was performed in CC and MLO projections. This study was interpreted with the benefit of Computerized Aided Detection (CAD). FINDINGS: Breast Density: HETERO The breast parenchyma Is heterogeneously dense, which could reduce sensitivity of mammography. Breast parenchyma level C No suspicious masses, microcalcifications or architectural distortion is present to suggest malignancy in either breast. The visualized axillae are unremarkable. IMPRESSION: No mammographic evidence of malignancy. BI-RADS CATEGORY: 1 NEGATIVE RECOMMENDED FOLLOW-UP: 12M 12 MONTH FOLLOW-UP Annual screening mammography is recommended, unless clinically indicated sooner based on symptoms or change in physical exam. PQRS compliance statement: Patient information was entered into a reminder system with a target due date for the next mammogram. Mammography is a sensitive method for finding small breast cancers, but it does not detect them all and is not a substitute for careful clinical examination. A negative mammogram does not negate a clinically suspicious finding and should not result in delay in biopsying a clinically suspicious abnormality. "Our facility is accredited by the [employer] Mammography Program."
== END ==
LOC: MAMMO 15:59
PROVIDERS: ATTEND Family Medicine
DX: Z12.31 Encounter for screening mammogram for malignant neoplasm of breast (principal)
CPT/HCPCS: 77063; 77067

== ENCOUNTER → 2020-07-29 | Outpatient (CLI) | payer OTHER | LOC: LAB 09:40 | PROVIDERS: ATTEND Internal Medicine Pulmonary Disease | DX: R05 Cough (principal); R51.9 Headache, unspecified; R19.7 Diarrhea, unspecified; R68.89 Other general symptoms and signs; J02.9 Acute pharyngitis, unspecified; Z20.828 Contact with and (suspected) exposure to other viral communicable diseases | CPT/HCPCS: U0003 ==

== ENCOUNTER → 2021-07-31 | Outpatient (CLI) | payer OTHER | LOC: LAB 16:37 | PROVIDERS: ATTEND Internal Medicine Pulmonary Disease | DX: R51.9 Headache, unspecified (principal); R50.9 Fever, unspecified; J02.9 Acute pharyngitis, unspecified; R53.81 Other malaise; R11.0 Nausea; R09.81 Nasal congestion; Z20.822 Contact with and (suspected) exposure to COVID-19 | CPT/HCPCS: 87426; U0003; U0005 ==

== ENCOUNTER → 2021-08-02 | Outpatient (CLI) | payer OTHER ==
--- NOTE | 2021-08-03 15:50 | RAD ---
Bilateral digital screening 2-D and 3-D (digital breast tomosynthesis) mammogram: Reason for examination: Routine screening. Comparison: Mammograms from 07/28/2020 and 06/26/2019. Interpretation was made with the benefit of CAD. FINDINGS: Breast density: Category B. There are scattered areas of fibroglandular density. No suspicious breast mass, malignant appearing calcifications, or architectural distortion is seen. IMPRESSION: No evidence of malignancy. Assessment: BI-RADS 1. Negative. Recommendation: Routine screening mammograms. The patient will receive a letter with the results in the mail. Patient information will be entered i nto the mammography reminder system with a target recall date for the next mammogram. A reminder jay er will be generated. Electronically signed by: Debi Arora MD (08/03/2021 3:47 PM) [id number]
== END ==
LOC: MAMMO 15:40
PROVIDERS: ATTEND Family Medicine
DX: Z12.31 Encounter for screening mammogram for malignant neoplasm of breast (principal)
CPT/HCPCS: 77063; 77067

== ENCOUNTER → 2021-08-26 | Outpatient (CLI) | payer OTHER ==
[2021-08-26 07:49] LABS: HEMATOCRIT 39.5 % (36.0-47.0); HEMOGLOBIN 12.7 g/dL (12.0-15.5); RED BLOOD COUNT 4.36 x10^6/uL (3.50-5.40); RED CELL DISTRIBUTION WIDTH 12.8 % (11.5-14.5); WHITE BLOOD COUNT 4.7 x10^3/uL (4.0-11.0)
[2021-08-26 08:10] LABS: ALBUMIN 3.7 g/dL (3.4-5.0); ALBUMIN/GLOBULIN RATIO 1.2 (1.0-1.7); CALCIUM 8.7 mg/dL (8.5-10.1); CHOLESTEROL/HDL RATIO 2.4; CREATININE 1.1 mg/dL (0.6-1.0); GFR 50.2; POTASSIUM 4.4 mmol/L (3.5-5.1); TOTAL BILIRUBIN 0.4 mg/dL (0.2-1.0); TOTAL PROTEIN 6.8 g/dL (6.4-8.2)
== END ==
LOC: LAB 06:31
PROVIDERS: ATTEND Family Medicine
DX: E78.5 Hyperlipidemia, unspecified (principal); N18.30 Chronic kidney disease, stage 3 unspecified; M85.9 Disorder of bone density and structure, unspecified
CPT/HCPCS: 80053; 80061; 82306; 85027

== ENCOUNTER → 2021-08-29 | Outpatient (CLI) | payer OTHER ==
--- NOTE | 2021-08-29 12:21 | RAD ---
XR LUMBAR SPINE 2-3V Clinical Indication: Reason: LOW BACK PAIN / Spl. Instructions: / History: Comparison: None. Findings: There is moderate left convexity lower thoracic and lumbar rotoscoliosis centered at about L2. The al ignment is maintained on the lateral view. There is disc space narrowing and reactive endplate change s in the lumbar spine most advanced at L5/S1. No acute fracture is identified. No obvious opacity in the visualized lung bases. There is scattered stool in the colon. IMPRESSION: There is moderate left convexity thoracolumbar rotoscoliosis. Electronically signed by: Justin Katz MD (08/29/2021 12:18 PM) [id number]
== END ==
LOC: RAD 10:25
PROVIDERS: ATTEND Family Medicine
DX: M41.85 Other forms of scoliosis, thoracolumbar region (principal); M48.07 Spinal stenosis, lumbosacral region; M54.50 Low back pain, unspecified; K56.41 Fecal impaction
CPT/HCPCS: 72100

== ENCOUNTER → 2021-09-27 | Outpatient (CLI) | payer OTHER ==
--- NOTE | 2021-09-27 15:24 | RAD ---
EXAMINATION: XR HIP (WITH OR WITHOUT PELVIS) RIGHT 1 VIEW CLINICAL HISTORY: RIGHT HIP PAIN. NO INJURY. TECHNIQUE: XR HIP (WITH OR WITHOUT PELVIS) RIGHT 1 VIEW Number of Images/Views: 2 COMPARISON: None FINDINGS: Joint spaces and alignment maintained in the right hip. Left hip unremarkable on limited evaluation. SI joints maintained. Pubic symphysis within normal limits for patient's age. Partially visualized heber mbar degenerative changes. No acute fracture. Pelvic phleboliths. IMPRESSION: No acute osseous abnormality. Electronically signed by: Wei Alaniz DO (09/27/2021 3:22 PM) [id number]
== END ==
LOC: RAD 13:40
PROVIDERS: ATTEND Family Medicine
DX: I86.2 Pelvic varices (principal); M25.551 Pain in right hip
CPT/HCPCS: 73501

== ENCOUNTER → 2021-10-04 | Outpatient (CLI) | payer OTHER ==
[~2021-10-04] MED LIST changes: +CALC500T30 PO; +CHOL5000 PO; +FERR-36 PO
--- NOTE | 2021-10-04 11:24 | RAD ---
MR LUMBAR SPINE WO [id number] Date: 10/04/2021 8:07 AM Indication: degenerative disc disease lumbar Comparison: Lumbar spine radiograph 08/29/2021. Technique: Multi-planar multi-weighted magnetic resonance imaging of the lumbar spine was performed w ithout intravenous contrast using the standard lumbar spine protocol. FINDINGS: Left convex lumbar curvature. No acute fracture. Mild to moderate multilevel degenerative disc desicc ation and disc height loss. Bone marrow signal intensity is normal. The conus terminates at a normal level. No abnormal signal is seen within the visualized distal spina l cord. No clumping of intrathecal nerve roots. No soft tissue abnormality in the visualized abdomen or pelvis. T12-L1: No significant spinal stenosis or neural foraminal narrowing. L1-L2: Disc bulge. Moderate right facet arthropathy. Moderate right neural foraminal narrowing. No sp inal canal stenosis. L2-L3: Disc bulge. Moderate facet arthropathy. No significant spinal canal stenosis or neural foramin al narrowing. L3-L4: Disc bulge. Severe right and moderate left facet arthropathy. Mild spinal canal stenosis. Mild right neural foraminal narrowing. L4-L5: Disc bulge. Moderate severe left facet arthropathy. No spinal canal stenosis. Moderate left la teral recess narrowing. Mild right and moderate to severe left neural foraminal narrowing. L5-S1: Disc bulge with left far lateral protrusion. Mild right and severe left facet arthropathy. Mil d right and moderate to severe left neural foraminal narrowing. No spinal canal stenosis IMPRESSION: Lumbar spondylosis and levoscoliosis. Degenerative changes worst at L4-5 and L5-S1 with moderate to s evere narrowing of the left neural foramen. No severe spinal canal stenosis. Electronically signed by: Enrrique Ware MD (10/04/2021 11:21 AM) [id number]
== END ==
LOC: MRI 07:49
PROVIDERS: ATTEND Family Medicine
DX: M47.816 Spondylosis without myelopathy or radiculopathy, lumbar region (principal); M41.86 Other forms of scoliosis, lumbar region; M51.27 Other intervertebral disc displacement, lumbosacral region; M48.07 Spinal stenosis, lumbosacral region; M48.8X7 Other specified spondylopathies, lumbosacral region
CPT/HCPCS: 72148

== ENCOUNTER → 2021-10-18 | Outpatient (CLI) | payer OTHER ==
[~2021-10-18] MED LIST changes: +DEXAMETHASONE PRES.FREE 10 MG/ML VIAL. ONE; +IOHEXOL 180 MG/ML 10 ML VIAL. ONE
--- NOTE | 2021-10-18 10:21 | PDOC1 ---
INITIAL PAIN CONSULT DATE OF SERVICE: DOS: DATE: 10/18/21 TIME: 10:16 CHIEF COMPLAINT: Chief Complaint: Low back and right lower extremity pain HISTORY OF PRESENT ILLNESS: 61-year-old female presents with history of pain low back and right lower extremity for many years worse over the past 6 months or so after some increased activity with moving some items bending and stooping and lifting etc. but no specific injury or accident she is getting worse after that increased activity in the low back across both sides but more on the right than the left and in the posterior gluteus lateral thigh and occasionally the medial anterior thigh patient reports is mostly in the back however on the right side greater than left patient report is worse with walking standing changing positions better wi th sitting or lying down but is waking her from sleep approximately twice a night patient reports is not effective bowel bladder control does not affect ability to walk significantly and she not use any assistive devices to ambulate. Patient has had trigger point ejections physical therapy and exercise which is ongoing also taking tramadol which does help but only slightly patient reports her disability rating 0-10 10 being the worst is a 7 family home responsibilities recreation occupation 5 with social activity sexual behavior and self-care and 3 with life support activities. Patient did have an MRI scan of the lumbar spine showing lumbar spondylosis and levoscoliosis with degenerative changes worst at L4-5 and L5-S1 with moderate to severe narrowing of the left neural foramen L3-4 showing disc bulge and severe right and moderate left facet arthropathy with mild spinal canal stenosis mild right neuroforaminal narrowing as well. Patient reports no loss of motor function but significant fatigability especially the right leg with standing walking more than about 15 to 20 minutes. Patient reports no bowel or bladder incontinence. PAST MEDICAL HISTORY: PMH: Arthritis, hyperlipidemia, Graves' disease, stage III kidney disease PREVIOUS SURGERIES: Past Surgical Hx: To abdominal hysterectomy, bilateral salpingo-oophorectomy, rhinoplasty CURRENT MEDICATIONS: Current Meds: Active Scripts Medications Dose Route/Sig Max Daily Dose Days Date Category Dose Instructions Iron (Ferrous Sulfate) 325 Mg Tablet 1 Tab PO Q2WKS 30 10/18/21 Reported Vitamin D3 (Vitamin D) 125 Mcg Capsule 125 Mcg PO DAILY 10/18/21 Reported 5,000 UNITS = 125 MCG Calcium (Calcium Carbonate) 500 Mg Tablet Unknown Dose PO DAILY 10/18/21 Reported Pravastatin Sodium 40 Mg Tablet 1 Tab PO DAILY 06/01/17 Reported Multivitamins (Multivitamin) 1 Each Tablet 1 Tab PO DAILY 06/01/17 Reported Aspir 81 (Aspirin) 81 Mg Tablet.dr 1 Tab PO DAILY 06/01/17 Reported ALLERGIES; Allergies: Coded Allergies: codeine (Verified Adverse Reaction, Mild, 05/08/19) HEADACHE FAMILY HISTORY: Family Hx: No major medical problems or conditions that she is aware of. 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 REVIEW OF SYSTEMS: ROS: Positive for those items mentioned in history of present illness, all systems are reviewed, otherwise negative ,and are complete full and well-documented on patient's chart. PHYSICAL EXAM: VS: Blood pressure is 144/87 pulse 81 respirations 16 temperature is 98.3 F height is 5 foot 5 and half inches weight is 168 pounds. PE: PHYSICAL EXAMINATION: GENERAL: The patient is awake, alert, oriented, appropriate, very pleasant in demeanor HEENT: Shows normocephalic, atraumatic. Extraocular movements are intact and symmetrical. Patient wearing eyeglasses. Oral cavity: Mucous membranes moist and pink. Dentition is intact. NECK: Shows anterior throat supple without palpable lymphadenopathy noted. Swallow reflex symmetrical. CHEST: Shows normal on inspection. Breath sounds are clear bilaterally, no rales rhonchi or wheezes auscultated. HEART: Shows S1, S2 clear. No murmurs auscultated. ABDOMEN: Soft, nontender, nondistended. No palpable organomegaly is noted. No rebound or guarding demonstrated. BACK: Shows spine grossly in the midline. Normal-appearing cervical lordotic curvature. There is slightly increased thoracic kyphosis, some minor flattening of the lumbar lordotic curvature. Lumbar paraspinous muscles show symmetrical on inspection, on palpation shows some moderate tenderness diffusely throughout the upper, middle and lower distribution of the paraspinous muscles bilaterally and also into the lower thoracic paraspinous musculature, firm and tender, but without specific trigger points, without radiation of pain. The patient has good rotational motion of the lumbar spine, both laterally as well as extension and flexion without significant difficulty. No tenderness over the spinous processes, sacrum or sacroiliac regions. EXTREMITIES: Lower extremities show deep tendon reflexes 2+ in the patellar and tendo calcaneus tendons. Motor exam is 4 on a scale of 5 with right dorsiflexion, extension, quadriceps and hamstring flexion and 5/5 on the left. Peripheral pulses are 1+ posterior tibial. No peripheral edema is noted bilaterally. Lower extremities are warm and dry to touch, equal in color and appearance. SKIN: Shows warm and dry, good turgor. No edema. No sores, rashes or bruising throughout. IMPRESSION: Impression: 61-year-old female with long history of low back and right sided lower extremity pain worse over the past 6 months or so MRI scan lumbar spine as noted Arthritis Graves' disease Stage III kidney disease Plan:Options were discussed with patient. Patient's old chart was reviewed his current medication regimen updated current review of systems updated today as well. We will proceed with a lumbar epidural steroid injection today with fluoroscopic guidance. Risks were discussed including but not limited to: Bleeding, infection, possibility of epidural hematoma and subsequent neurological compromise, dural puncture, headaches, spinal cord and/or nerve damage, side effects of steroid medication, and poor results regarding pain control. Patient understands and wished to proceed. Patient will return to the clinic in approximately 2 weeks for follow-up, was counseled as to return appointment, activity level, and side effects to be aware of. Procedure is lumbar epidural steroid injection under local anesthetic using sterile prep and drape at the L4-5 level using C-arm fluoroscopic guidance in both AP and lateral views medications injected is 120 mg methylprednisolone +10mL preservative-free normal saline and 2 mL contrast- condition at discharge is stable patient tolerated procedure well had no complications. GAGAN WONG MD Oct 18, 2021 10:21
--- NOTE | 2021-10-18 10:22 | PDOC4 ---
Procedure Note: ICD 10 Code: ICD 10 Code: M54.16 M51.36 M48.06 Procedure Note: Patient was consented for lumbar epidural steroid injection with fluoroscopic guidance. Risks were discussed including but not limited to: Bleeding, infection, possibility of epidural hematoma and subsequent neurological compromise, dural puncture, headaches, spinal cord and/or nerve damage, side effects of steroid medication, and poor results regarding pain control. Patient understands and wished to proceed. Procedure is lumbar epidural steroid injection under local anesthetic using ster ile prep and drape at the L4-5 level using C-arm fluoroscopic guidance in both AP and lateral views medications injected is 120 mg methylprednisolone +10mL preservative-free normal saline and 2 mL contrast- condition at discharge is stable patient tolerated procedure well had no complications. GAGAN WONG MD Oct 18, 2021 10:22
== END | disposition home or self-care (01) ==
LOC: PNCL 08:20
PROVIDERS: ATTEND Anesthesiology
DX: M51.16 Intervertebral disc disorders with radiculopathy, lumbar region (principal); M48.061 Spinal stenosis, lumbar region without neurogenic claudication; E78.00 Pure hypercholesterolemia, unspecified; N18.30 Chronic kidney disease, stage 3 unspecified; E03.9 Hypothyroidism, unspecified; K21.9 Gastro-esophageal reflux disease without esophagitis; Z90.710 Acquired absence of both cervix and uterus; Z98.890 Other specified postprocedural states; Z79.899 Other long term (current) drug therapy; Z79.82 Long term (current) use of aspirin; Z88.5 Allergy status to narcotic agent; Z72.89 Other problems related to lifestyle
CPT/HCPCS: 62323; J1100; Q9965

== ENCOUNTER → 2021-11-01 | Outpatient (CLI) | payer OTHER ==
--- NOTE | 2021-11-01 09:32 | PDOC ---
Progress Note - Pain Clinic Date of Service: DOS: DATE: 11/01/21 TIME: 09:28 Diagnosis: Dx: Lumbar radiculopathy lumbar degenerative disease and lumbar spinal stenosis History or Present Illness: HPI: 61-year-old female returns for follow-up status post lumbar epidural steroid injection. Patient reports about 75% improvement for about a week and a half and the pain began to return after that with pain in the low back and primarily in the right lower extremity posterior gluteus lateral thigh anterior thigh medial thigh also in the posterior hip, which is new at the superior aspect of the sacroiliac region and the posterior iliac, which was not present previously. Patient reports is a 6 on scale 10 is worse over the past week 6 on average 2, at its least, and is a 6 today patient ports aching on and off in intensity prior that she was doing much better with increased activity at work doing household activities travel with greater ease and comfort sleeping better at night now is waking her from sleep about every 4-6 hours if she lays on her right side most especially patient reports on and off in intensity no motor or sensory deficits minor fatigability with the right lower extremity with standing and walking which flares the pain but no bowel or bladder incontinence. Patient reports taking some [id number] back and body tablets which have helped the pain in the right hip significantly. We did show her some stretching exercises to do with the right hip and posterior sacroiliac region as well. Physical Exam: VS: Blood pressure is 119/73 pulse 79 respirations 18 temperature is 98.0 F weight is 160 pounds. PE: PHYSICAL EXAMINATION: GENERAL: The patient is awake, alert, oriented, appropriate, very pleasant in demeanor HEENT: Shows normocephalic, atraumatic. Extraocular movements are intact and symmetrical. Patient wearing eyeglasses. Oral cavity: Mucous membranes moist and pink. Dentition is intact. NECK: Shows anterior throat supple without palpable lymphadenopathy noted. Swallow reflex symmetrical. CHEST: Shows normal on inspection. Breath sounds are clear bilaterally. HEART: Shows S1, S2 clear. No murmurs auscultated. ABDOMEN: Soft, nontender, nondistended. No palpable organomegaly is noted. BACK: Shows spine grossly in the midline. Normal-appearing cervical lordotic curvature. There is slightly increased thoracic kyphosis, some minor flattening of the lumbar lordotic curvature. Lumbar paraspinous muscles show symmetrical on inspection, on palpation shows some moderate tenderness diffusely throughout the upper, middle and lower distribution of the paraspinous musculature, but without specific trigger points, without radiation of pain. The patient has good rotational motion of the lumbar spine, both laterally as well as extension and flexion without significant difficulty. Moderate tenderness over the posterior superior iliac spine on the right as well as the superior aspect of the sacroiliac joint but without radiation, left side is nontender. EXTREMITIES: Lower extremities show deep tendon reflexes 2+ in the patellar and tendo calcaneus tendons. Motor exam is 4 on a scale of 5 with right dorsiflexion, extension, quadriceps and hamstring flexion and 5/5 on the left. Peripheral pulses are 1 posterior tibial. No peripheral edema is noted bilaterally. Lower extremities are warm and dry. SKIN: Shows warm and dry, good turgor. No edema. No sores, rashes or bruising throughout. Procedure: Procedure: Options were discussed with patient. Patient's old chart was reviewed as was her current medication regimen updated, and current review of systems updated today as well. We will proceed with a lumbar epidural steroid injection today with fluoroscopic guidance. Risks were discussed including but not limited to: Bleeding, infection, possibility of epidural hematoma and subsequent neurological compromise, dural puncture, headaches, spinal cord and/or nerve damage, side effects of steroid medication, and poor results regarding pain co ntrol. Patient understands and wished to proceed. Patient will return to the clinic in approximate 2 weeks for follow-up, was counseled as to return appointment, active level, and side effects to be aware of. Medication Injected: Med Injected: Procedure is lumbar epidural steroid injection under local anesthetic using sterile prep and drape at the L4-5 level using C-arm fluoroscopic guidance in both AP and lateral views medications injected is 20 mg dexamethasone +10mL pre servative-free normal saline and 2 mL contrast- condition at discharge is stable patient tolerated procedure well had no complications. Condition at Discharge: Condition at Discharge: Condition at discharge stable, paced tolerated procedure well and had no complications. GAGAN WONG MD November 01, 2021 09:32
--- NOTE | 2021-11-01 09:33 | PDOC4 ---
Procedure Note: ICD 10 Code: ICD 10 Code: M54.16 M51.36 M48.06 Procedure Note: Patient was consented for lumbar epidural steroid injection with fluoroscopic guidance. Risks were discussed including but not limited to: Bleeding, infection, possibility of epidural hematoma and subsequent neurological compromise, dural puncture, headaches, spinal cord and/or nerve damage, side effects of steroid medication, and poor results regarding pain control. Patient understands and wished to proceed. Procedure is lumbar epidural steroid injection under local anesthetic using ster ile prep and drape at the L4-5 level using C-arm fluoroscopic guidance in both AP and lateral views medications injected is 20 mg dexamethasone +10mL preservative-free normal saline and 2 mL contrast- condition at discharge is stable patient tolerated procedure well had no complications. GAGAN WONG MD November 01, 2021 09:33
== END | disposition home or self-care (01) ==
LOC: PNCL 08:32
PROVIDERS: ATTEND Anesthesiology
DX: M51.16 Intervertebral disc disorders with radiculopathy, lumbar region (principal); M48.02 Spinal stenosis, cervical region; E78.00 Pure hypercholesterolemia, unspecified; K21.9 Gastro-esophageal reflux disease without esophagitis; I12.9 Hypertensive chronic kidney disease with stage 1 through stage 4 chronic kidney disease, or unspecified chronic kidney disease; N18.30 Chronic kidney disease, stage 3 unspecified; Z90.710 Acquired absence of both cervix and uterus; Z98.890 Other specified postprocedural states; Z79.899 Other long term (current) drug therapy; Z79.82 Long term (current) use of aspirin; Z72.89 Other problems related to lifestyle
CPT/HCPCS: 62323; J1100; Q9965

== ENCOUNTER → 2021-11-15 | Outpatient (CLI) | payer OTHER ==
--- NOTE | 2021-11-15 12:34 | PDOC ---
Progress Note - Pain Clinic Date of Service: DOS: DATE: 11/15/21 TIME: 12:31 Diagnosis: Dx: Lumbar radiculopathy with lumbar degenerative disc disease and lumbar spinal stenosis History or Present Illness: HPI: 61-year-old female returns for follow-up status post lumbar epidural steroid injection most recently November 01, 2021 patient did very well with about 70% improvement for the first few days and about 20% improvement overall with the pain returned fairly significantly but is now and more in the low back and hips and in the lower extremities patient reports somewhat more on the right than the left but present bilaterally rate is a 6 on a scale of 10 at its worst over the past week for an average 4, 4 at its least, and is a 4 today. Patient reports no bowel or bladder incontinence the pain is aching and dull in the back radiating across the right and left side essentially equal more on the right th an the left with walking and standing patient reports it wakes her from sleep about every 4-6 hours but she can use repositioning it back to sleep patient reports no bowel or bladder incontinence reports no loss of motor function with significant fatigability of both lower extremities with ambulation. Physical Exam: VS: Blood pressure is 150/94 pulse 76 respirations 18 temperature is 98.7 F height is 5 feet 5 inches weight 163 pounds. PE: PHYSICAL EXAMINATION: GENERAL: The patient is awake, alert, oriented, appropriate, very pleasant in demeanor HEENT: Shows normocephalic, atraumatic. Extraocular movements are intact and symmetrical. Oral cavity: Mucous membranes moist and pink. Dentition is intact . NECK: Shows anterior throat supple without palpable lymphadenopathy noted. Swallow reflex symmetrical. CHEST: Shows normal on inspection. Breath sounds are clear bilaterally. HEART: Shows S1, S2 clear. No murmurs auscultated. ABDOMEN: Soft, nontender, nondistended. No palpable organomegaly is noted. BACK: Shows spine grossly in the midline. Normal-appearing cervical lordotic curvature. There is mild increased thoracic kyphosis, some minor flattening of the lumbar lordotic curvature. Lumbar paraspinous muscles show symmetrical on inspection, on palpation shows some moderate tenderness diffusely throughout the upper, middle and lower distribution of the paraspinous muscles, but without specific trigger points, without radiation of pain. The patient has good rotational motion of the lumbar spine, both laterally as well as extension and flexion without significant difficulty. EXTREMITIES: Lower extremities show deep tendon reflexes 2+ in the patellar and tendo calcaneus tendons. Motor exam is 4 on a scale of 5 with right dorsiflexion, extension, quadriceps and hamstring flexion and 5/5 on the left. Peripheral pulses are 1+ posterior tibial. No peripheral edema is noted bilaterally. Lower extremities are warm and dry. SKIN: Shows warm and dry, good turgor. No edema. No sores, rashes or bruising throughout. Procedure: Procedure: Options discussed with patient. Patient's old chart was reviewed as her current medication regimen updated current review of systems updated today as well. We will proceed with a lumbar epidural steroid injection today with fluoroscopic guidance. Risks were discussed including but not limited to: Bleeding, infection, possibility of epidural hematoma and subsequent neurological compromise, dural puncture, headaches, spinal cord and/or nerve damage, side effects of steroid medication, and poor results regarding pain control. Patient understands and wished to proceed. Patient will return to clinic in approximate 2 weeks for follow-up, was counseled as to return appointment, activity level, and side effects to be aware of. Medication Injected: Med Injected: Procedure is lumbar epidural steroid injection under local anesthetic using sterile prep and drape at the L5-S1 level using C-arm fluoroscopic guidance in both AP and lateral views medications injected is 20 mg dexamethasone +10mL pres ervative-free normal saline and 2 mL contrast- condition at discharge is stable patient tolerated procedure well had no complications. Condition at Discharge: Condition at Discharge: Condition at discharge stable, patient tolerated the procedure well and had no complications. GAGAN WONG MD November 15, 2021 12:34
--- NOTE | 2021-11-15 12:35 | PDOC4 ---
Procedure Note: ICD 10 Code: ICD 10 Code: M54.16 M51.36 M48.06 Procedure Note: Patient was consented for lumbar epidural steroid injection with fluoroscopic guidance. Risks were discussed including but not limited to: Bleeding, infection, possibility of epidural hematoma and subsequent neurological compromise, dural puncture, headaches, spinal cord and/or nerve damage, side effects of steroid medication, and poor results regarding pain control. Patient understands and wished to proceed. Procedure is lumbar epidural steroid injection under local anesthetic using ster ile prep and drape at the L5-S1 level using C-arm fluoroscopic guidance in both AP and lateral views medications injected is 20 mg dexamethasone +10mL preservative-free normal saline and 2 mL contrast- condition at discharge is stable patient tolerated procedure well had no complications. GAGAN WONG MD November 15, 2021 12:35
== END | disposition home or self-care (01) ==
LOC: PNCL 08:16
PROVIDERS: ATTEND Anesthesiology
DX: M51.16 Intervertebral disc disorders with radiculopathy, lumbar region (principal); M48.061 Spinal stenosis, lumbar region without neurogenic claudication; I12.9 Hypertensive chronic kidney disease with stage 1 through stage 4 chronic kidney disease, or unspecified chronic kidney disease; N18.30 Chronic kidney disease, stage 3 unspecified; E78.00 Pure hypercholesterolemia, unspecified; Z79.82 Long term (current) use of aspirin; Z72.89 Other problems related to lifestyle; Z79.899 Other long term (current) drug therapy; Z98.890 Other specified postprocedural states; Z90.710 Acquired absence of both cervix and uterus; Z88.5 Allergy status to narcotic agent
CPT/HCPCS: 62323; J1100; Q9965